=== PATIENT | male | born 1980 | race Caucasian/White ===

== ENCOUNTER 2024-03-23 21:51 | Emergency (ER) | payer OTHER, SELFPAY ==
[2024-03-23 21:53] VITALS: BP 137/98; BMI 31.0
--- NOTE | 2024-03-24 00:19 | ED.GENMED ---
History of Present Illness
General
Chief Complaint: Head Injury
Source: patient
Exam Limitations: none
Time Seen by Provider: 03/23/24 23:49
Nursing documentation reviewed up to this point in time: agreed with
History of Present Illness
History of Present Illness:
This is a 43-year-old gentleman who resides in [place], currently staying with his mother in [place], helping her rehab from back pain issues.
While pulling weights off of a bar, the weights slipped and struck him on the left orbit and he presents with superficial lacerations left brow, left inferior orbit. Admits to moderate bleeding initially which stopped promptly with local pressure.
He also admits to briefly 'seeing stars' but no falls or loss of consciousness. Admits to mild ache left orbit but no vision difficulty nor eye pain. No nausea or vomiting. No neck pain or back pain.
He takes no anticoagulants. He does have history of ankylosing spondylitis chronically maintained on Toltz. History of asthma, hypothyroidism, lumbar DJD, frequent sinusitis with concern for chronic immunosuppression, follows with multiple
specialist at [facility].
He is up-to-date with immunizations.
Last Tdap January 2019.
Phy Exam
Physical Exam
Physical Exam:
TRAUMA EXAM:
VITAL SIGNS: Vital signs reviewed, cooperative
DISTRESS: No active disease
EYES: Pupils equal and reactive, extraocular muscles intact. Visual acuity grossly intact. There is a 2 cm horizontal laceration left superior brow deep dermal in depth. No active bleeding. No soft tissue swelling, minimal local tenderness to
palpation. There is a 0.75 cm laceration left inferior orbit, dermal in depth. No active bleeding. No soft tissue swelling. Minimal local tenderness to palpation.
NOSE: No deformity or epistaxis. There is a minute superficial abrasion at nasal bridge. No tenderness to palpation. No bleeding nor soft tissue swelling nor ecchymosis.
FACE AND SCALP: No scalp trauma, external canals no blood
NECK: Supple nontender, full range of motion without difficulty or pain.
BACK: Back nontender, pelvis stable to compression
RESPIRATORY: No distress, breath sounds normal, no tender chest wall
CARDIAC: No murmur, pulses equal and strong
ABDOMEN: Soft nontender bowel sounds normal
SKIN: Warm and dry, normal color. Good turgor.
EXTREMITIES: Nontender, full range of motion without difficulty nor pain.
NEUROLOGICAL: Alert, oriented, no motor deficits. Gait is munoz and steady.
PSYCH: Mood affect normal
Course
Orders/Labs/Results
Orders:
Orders
03/24/24 00:23
Tetanus/Diphth/Acelpertussis [Adacel] 0.5 ml IM .ONCE ONE
Vital Signs
Initial and Last Documented VS:
Initial Vital Signs
Temp Pulse Resp BP Pulse Ox
98.4 F 85 16 137/98 99
03/23/24 21:53 03/23/24 21:53 03/23/24 21:53 03/23/24 21:53 03/23/24 21:53
Last Documented Vital Signs
Temp Pulse Resp BP Pulse Ox
98.4 F 76 20 137/98 98
03/23/24 21:53 03/24/24 00:11 03/24/24 00:11 03/23/24 21:53 03/24/24 01:04
Procedures
Laceration Closure
Left Lower Forehead:
Status of Wound: clean
Size of Wound in cm: 2
Description of Wound Edges: sharp
Preparation: cleaned with saline
Revision/Debridement: routine- no revision
Wound exploration: explored to base- no FB and no tendon involvement
Type of Closure: Dermabond-skin glue
Left Superior Medial Cheek:
Status of Wound: clean
Size of Wound in cm: 0.75
Description of Wound Edges: sharp
Preparation: cleaned with saline
Revision/Debridement: routine- no revision
Wound exploration: explored to base- no FB and no tendon involvement
Type of Closure: Dermabond-skin glue
MDM/Problems Addressed
Differential Diagnosis Includes:
Patient presents with left orbital contusion with linear lacerations, dermal in depth at superior as well as inferior left orbit. There is no soft tissue swelling nor ecchymosis. No evidence of eye/globe trauma.
No significant tenderness to palpation nor soft tissue swelling. Nothing to suspect orbital fracture. No indication for imaging.
No focal neuro deficits, no loss of consciousness. Takes no anticoagulants. No indication for CT of the head.
Previous Tdap January 2019. Will update Tdap today.
Will plan for Dermabond wound glue to lacerations and due to chronic immunosuppression will add a short course of Keflex for infection prevention.
Chronic conditions affecting care: Immunosuppressed
*Pulse Oximetry
Patient hypoxic: no
*Critical Care Note
Total Time (30-74mins, 75-104mins- exclusive of procedures): Not Applicable
ED Attending Note
-
Portions of this chart may have been created with voice recognition software.� Occasional wrong word or��sound alike� substitutions may have occurred due to the inherent limitations of voice recognition software.
Discharge Plan
Departure
Patient Disposition: Home (Routine Discharge)
Date of Disposition: 03/24/24
Time of Disposition: 00:43
Patient with high blood pressure during this ER visit?: No
Condition: Good
Discharge Problem:
Contusion of left orbit, left brow laceration, left inferior orbit laceration, minor nasal contusion
Instructions: Laceration Repair With Glue (DC), Minor Head Injury (DC), Tdap vaccine
Prescriptions:
New
cephalexin 500 mg capsule
1,000 mg PO BID 4 Days Qty: 16 0RF
Referrals:
PRIVATE,PHYSICIAN [Family Provider] - Call in 1-3 days for appt
Interventions
Interventions:
*Risk Screen - Suicide Last Done: 03/23/24 21:53
*General Assessment Last Done: 03/24/24 00:22
*Neglect/Abuse Screening Last Done: 03/23/24 21:53
ED- Fall Risk Assessment Last Done: 03/24/24 00:22
*ED COVID-19 Vaccine History Last Done: 03/24/24 01:04
*Nursing Disposition Last Done: 03/24/24 01:04
ED- Neurological Assessment Last Done: 03/24/24 00:22
ED-Skin Assessment Last Done: 03/24/24 00:22
Discharge Date and Time
Discharge Date/Time: 03/24/24 01:05
Print Language: BELGIAN
[2024-03-24] MEDS: ADACEL 0.5 ML IM (00:36)
== END 2024-03-24 01:05 | disposition home or self-care (01) ==
LOC: EMR 21:51
PROVIDERS: EMERGENCY PHYSICIAN Emergency Medicine
DX: S01.112A Laceration without foreign body of left eyelid and periocular area, initial encounter (principal); S05.12XA Contusion of eyeball and orbital tissues, left eye, initial encounter; S05.42XA Penetrating wound of orbit with or without foreign body, left eye, initial encounter; W20.8XXA Other cause of strike by thrown, projected or falling object, initial encounter; Y93.B3 Activity, free weights
CPT/HCPCS: 99283; 12013; 90471; 90715

== ENCOUNTER 2025-03-26 22:05 | Emergency (ER) | payer BC, SELFPAY ==
[2025-03-26 22:07] VITALS: BP 154/105
[2025-03-26 22:30] LABS: Hematocrit 46.8 % (39.0-52.0); Hemoglobin 16.6 g/dL (13.0-18.0); Mean Corp Hgb Conc. 35.5 g/dL (33.0-37.0); Mean Corpuscular Volume 85.7 fL (80.0-94.0); Nucleated Red Blood Cells % 0 % (-); Platelet Count 215 10^3/uL (130-400); Red Cell Dist. Width 12.9 % (11.5-14.5)
[2025-03-26 22:45] LABS: COVID-19 Antigen Negative (Negative)
[2025-03-26 22:47] LABS: ALT (SGPT) 38 U/L (0-50); AST (SGOT) 35 U/L (17-59); Albumin 5.0 g/dl (3.5-5.0); Alkaline Phosphatase 76 U/L (38-126); Blood Urea Nitrogen 16 mg/dl (9-20); Calcium 9.8 mg/dl (8.4-10.2); Carbon Dioxide 27 mmol/L (22-30); Chloride 101 mmol/L (98-107); Glucose 111 mg/dl (70-99); Potassium 3.8 mmol/L (3.5-5.1); Sodium 135 mmol/L (135-145); Total Protein 7.7 g/dl (6.3-8.2); eGFR > 60.00
--- NOTE | 2025-03-27 01:09 | ED.GENMED ---
History of Present Illness
<Michelle LIZ Nunez - Last Filed: 03/27/25 01:47>
General
Chief Complaint: Fever
Source: patient
Time Seen by Provider: 03/27/25 00:52
History of Present Illness
History of Present Illness:
Patient is a 44 y/o M with PMHx of ankylosing spondylitis and chronic sinus infections that presents to ED for fever x 1 day. Patient woke up this morning feeling feverish, Tmax 105 at home, patient has taken 1500 mg of Tylenol throughout the day
with little relief. Patient reports associated symptoms of L ear pain, L sided maxillary and front sinus pain, sore throat, fatigue and feelings of lightheadedness, all of which began this morning. Patient also reports recent sinus infection 3 weeks
ago that was treated with Augmentin. As a result of the antibiotic use patient also developed oral thrush. Patient reports that he takes a prophylaxis dose of Azithromycin 3 times weekly for about 1 year for chronic sinus infections.
Review of Systems
<LIZ Valentino - Last Filed: 03/27/25 01:47>
Review of Systems
Allergies reviewed?: Yes
Constitutional: Reports fever and fatigue
EENT: Reports sore throat and mouth pain (thrush - oral buccal mucosa ); Denies tearing or runny nose
Respiratory: Denies cough or trouble breathing
Cardiac: Denies chest pain or palpitations
ABD/GI: Denies abdominal pain, nausea, vomiting, diarrhea or constipated
: Denies dysuria or frequency
Musculoskeletal: Denies joint pain or muscle pain
Skin: Reports no symptoms
Neurological: Reports no symptoms
Hematologic/Lymphatic: Reports swollen glands
Phy Exam
<LIZ Valentino - Last Filed: 03/27/25 01:47>
General Physical Exam
General Presentation: well appearing and no apparent distress
General age: appears stated age
General Skin: warm and dry
General Habitus: normal
General Mental: alert
General Hydration: appears well hydrated
ENT Exam
ENT Exam: TM's normal and pharyngeal erythema (mild)
Eye Exam
Eye Exam: conjunctiva normal
Cardiovascular Exam
Cardiovascular Exam: regular rate/rhythm and no murmur
Heart Sounds: normal
Pulmonary Exam
Pulmonary Exam: lungs clear, no respiratory distress, no rales, no rhonchi and no wheezing
Cough: no cough
Gastrointestinal Exam
Gastrointestinal Exam: normal bowel sounds, non tender, soft and non distended
Skin Exam
Skin Exam: normal color, warm/dry and no rash
Course
Merelt;ST ChichoSC - Last Filed: 03/27/25 01:47>
Orders/Labs/Results
Orders:
Orders
03/26/25 22:21
COVID-19 Antigen Urgent
Source: Nasal Swab
Complete Blood Count/With Diff Urgent
Comprehensive Metabolic Panel Urgent
Influenza A+B Rapid Molecular Urgent
STANISALW Source: Nasal Swab
Specimen Description:
03/27/25 01:43
Fluconazole [Diflucan] 200 mg PO NOW STA
03/27/25 01:44
Rapid Strep Group A Urgent
STANISLAW Source: Throat/Pharynx
Specimen Description:
Date Specimen was Collected: 03/27/25
Time Specimen was Collected: 01:37
Abnormal Lab Results
03/26/25
22:21
Absolute Neuts (auto) 6.9 H 10^3/uL
(1.4-6.5)
Absolute Monos (auto) 1.0 H 10^3/uL
(0.1-0.6)
Lymphocytes % 13.3 L %
(20.5-51.1)
Monocytes % 11.1 H %
(1.7-9.3)
Glucose 111 H mg/dl
(70-99)
03/26/25 22:21
03/26/25 22:21
Vital Signs
Initial and Last Documented VS:
Initial Vital Signs
Temp Pulse Resp BP Pulse Ox
99 F 112 18 154/105 98
03/26/25 22:07 03/26/25 22:07 03/26/25 22:07 03/26/25 22:07 03/26/25 22:07
Last Documented Vital Signs
Temp Pulse Resp BP Pulse Ox
99.2 F 80 18 145/89 98
03/27/25 02:25 03/27/25 02:25 03/27/25 02:25 03/27/25 02:25 03/27/25 02:25
<Lori Moreau, DO - Last Filed: 03/27/25 02:41>
Orders/Labs/Results
Orders:
Orders
03/26/25 22:21
COVID-19 Antigen Urgent
Source: Nasal Swab
Complete Blood Count/With Diff Urgent
Comprehensive Metabolic Panel Urgent
Influenza A+B Rapid Molecular Urgent
STANISLAW Source: Nasal Swab
Specimen Description:
03/27/25 01:43
Fluconazole [Diflucan] 200 mg PO NOW STA
03/27/25 01:44
Rapid Strep Group A Urgent
STANISLAW Source: Throat/Pharynx
Specimen Description:
Date Specimen was Collected: 03/27/25
Time Specimen was Collected: 01:37
Abnormal Lab Results
03/26/25
22:21
Absolute Neuts (auto) 6.9 H 10^3/uL
(1.4-6.5)
Absolute Monos (auto) 1.0 H 10^3/uL
(0.1-0.6)
Lymphocytes % 13.3 L %
(20.5-51.1)
Monocytes % 11.1 H %
(1.7-9.3)
Glucose 111 H mg/dl
(70-99)
03/26/25 22:21
03/26/25 22:21
Vital Signs
Initial and Last Documented VS:
Initial Vital Signs
Temp Pulse Resp BP Pulse Ox
99 F 112 18 154/105 98
03/26/25 22:07 03/26/25 22:07 03/26/25 22:07 03/26/25 22:07 03/26/25 22:07
Last Documented Vital Signs
Temp Pulse Resp BP Pulse Ox
99.2 F 80 18 145/89 98
03/27/25 02:25 03/27/25 02:25 03/27/25 02:25 03/27/25 02:25 03/27/25 02:25
<LIZ Valentino - Last Filed: 03/27/25 01:47>
MDM/Problems Addressed
Differential Diagnosis Includes:
Differential diagnosis includes but is not limited to
1. Viral pharyngitis
2. Strep pharyngitis
3. Sinusitis
4. Influenza
5. Covid-19
6. Mononucleosis
MDM/Problems Addressed:
1. Fever x 1 day
-CBC/CMP
-SARS-Cov2 antigen testing
-Influenza A & B NAAT testing
-Rapid Group A strep test
2. Oral thrush
- Oral difulcan 200 mg PO
Chronic conditions affecting care: Immunosuppressed (On Rinvoq)
<LIZ Valentino - Last Filed: 03/27/25 01:47>
*Pulse Oximetry
SaO2: 98
Oxygen Mode of Delivery: Room air
Patient hypoxic: no
*Critical Care Note
Total Time (30-74mins, 75-104mins- exclusive of procedures): Not Applicable
ED Attending Note
<LIZ Valentino - Last Filed: 03/27/25 01:47>
-
Portions of this chart may have been created with voice recognition software.� Occasional wrong word or��sound alike� substitutions may have occurred due to the inherent limitations of voice recognition software.
<Lori Moreau DO - Last Filed: 03/27/25 02:41>
ED Attending Note
Patient seen and examined by attending physician: Yes
I performed the substantive portion of visit, reviewed & personally made and approve the management plan that is documented in note by myself or JIMENA.: Yes
ED Attending Note:
This is a 44-year-old gentleman with history of ankylosing spondylitis chronically maintained on Rinvoq. He has history of chronic/frequent sinusitis, history of asthma, follows with ENT as well as allergy asthma specialists. Chronically
maintained on erythromycin 3 times weekly and was treated for sinusitis with a course of Augmentin which completed 3 weeks ago. He has been suffering with oral thrush over the past 3 weeks which initially began while taking Augmentin. Was treated
with clotrimazole lozenges with moderate improvement. He admits to sporadic use of clotrimazole over the past week.
He admits to very mild achiness last night but then awoke this morning acutely febrile with Tmax this evening of 105 �F prompting ED visit. He admits to moderate sore throat which has improved throughout the day, mild nasal congestion with sinus
pressure on the left and some left ear discomfort. He denies cough no shortness of breath, no headache, no rash, no abdominal pain, no nausea nor vomiting, no diarrhea or constipation. He took a dose of Tylenol prior to arrival.
No close contacts with similar symptoms. No recent travel.
44-year-old gentleman appears his stated age, bright alert, pleasant, easily communicative and in no acute distress. Oral temperature 99 �F initially, upon recheck 99.2 �F.
HEENT: There is thin whitish film bilateral buccal mucosa that is removable with scraping. There is moderate posterior pharyngeal injection without exudate nor ulceration. Nares with mildly boggy turbinates without mucopus nor rhinorrhea. TMs are
clear bilaterally.
Neck is supple, nontender, no adenopathy, no meningismus.
Heart is regular rate and rhythm. No murmur no rub.
Lungs are clear to auscultation. Respirations are easy nonlabored.
Concern for viral URI, viral sinusitis, strep pharyngitis.
Whitish film bilateral buccal mucosa appears consistent with oral candidiasis.
Patient is at risk for oral candidiasis as he is maintained on immunosuppressants and also uses inhaled corticosteroids.
Labs are reassuring with normal white blood cell count, no left shift. Chemistries are unremarkable. COVID and influenza testing are negative.
Will check rapid strep.
Will plan for oral Diflucan for oral candidiasis.
If rapid strep is negative would recommend holding off on antibiotics as at this point no indication of acute bacterial sinusitis. And overall well in appearance.
Ultimately will require prompt follow-up with ENT and asthma specialist.
Discharge Plan
Departure
Patient Disposition: Home (Routine Discharge)
Date of Disposition: 03/27/25
Time of Disposition: 02:39
Patient with high blood pressure during this ER visit?: No
Condition: Good
Discharge Problem:
Acute febrile illness, Candidiasis of mouth, Upper respiratory infection, viral
Instructions: Thrush in adults, Fever, Adult (DC), Viral Syndrome (DC)
Prescriptions:
New
fluconazole [Diflucan] 100 mg tablet
100 mg PO DAILY Qty: 14 0RF
No Action
cephalexin 500 mg capsule
1,000 mg PO BID 4 Days Qty: 16 0RF
Referrals:
PRIVATE,PHYSICIAN [Family Provider, Internal Medicine] - Follow up in 2-3 days
Interventions
Interventions:
*Risk Screen - Suicide Last Done: 03/26/25 22:07
*General Assessment Last Done: 03/26/25 22:07
*Neglect/Abuse Screening Last Done: 03/26/25 22:07
*ED- Fall Risk Assessment Last Done: 03/26/25 22:07
*ED COVID-19 Vaccine History Last Done: 03/26/25 22:07
ED- Neurological Assessment Last Done: 03/27/25 01:00
ED-Skin Assessment Last Done: 03/27/25 01:00
Discharge Date and Time
Print Language: LITHUANIAN
[2025-03-27] MEDS: DIFLUCAN 200 MG PO (01:59)
[2025-03-27 02:25] VITALS: BP 145/89
== END 2025-03-27 02:51 | disposition home or self-care (01) ==
LOC: EMR 22:05
PROVIDERS: Emergency Medicine; EMERGENCY PHYSICIAN Emergency Medicine
DX: R50.9 Fever, unspecified (principal); B37.0 Candidal stomatitis; J06.9 Acute upper respiratory infection, unspecified; M45.9 Ankylosing spondylitis of unspecified sites in spine; D84.81 Immunodeficiency due to conditions classified elsewhere; J45.909 Unspecified asthma, uncomplicated
CPT/HCPCS: 99283; 80053; 85025; 87070; 87502; 87811; 87880